=== PATIENT | male | born 1965 | race American Indian/Alaskan Native ===

== ENCOUNTER 2020-07-06 11:19 | Emergency (ER) | payer SELFPAY ==
--- NOTE | 2020-07-06 11:52 | Emergency Department Report ---
ED Chest Pain HPI - General Chief Complaint: Chest Pain Stated Complaint: CHEST PAIN Time Seen by Provider: 07/06/20 11:49 Source: patient, EMS Mode of arrival: Stretcher Limitations: No Limitations - History of Present Illness Initial Comments: 55-year-old male with a past medical history of atrial fibrillation (on aspirin 81 and diltiazem), current smoker (1/2 pack/day), and elevated cholesterol (noncompliant with Lipitor) presents to the hospital with complaints of intermittent chest pain. Symptoms occurred while standing at work. He describes it as a tightness of his heart or feeling like his heart is temporarily stopping. Symptoms are episodic lasting for seconds at a time. No aggravating alleviating factors reported. Patient has had similar symptoms in the past but were more frequent today. He denies associated nausea, vomiting, diaphoresis, or shortness of breath. He is compliant with his aspirin and diltiazem. He is unclear if he has paroxysmal atrial fibrillation or continuous atrial fibrillation. He reports a normal stress test performed end of last year or early 2020 by his marketing programs manager and [place]. Denies history of previous cath, CAD, or stent. Patient moved here and traveled via bus to [place] approximately 2 weeks ago. He denies history of PE/DVT, calf tenderness, or leg edema. He does not have a local marketing programs manager. Patient states he did have a large cup of caffeine earlier this morning and admits that his marketing programs manager in the past had advised him to not drink caffeine. He denies history of CAD in his family members prior to the age of 65 Severity scale (0 -10): 10 - Related Data Home Medications Medication Instructions Recorded Confirmed Last Taken Aspirin [Adult Aspirin] 81 mg PO QDAY 07/06/20 07/06/20 Unknown dilTIAZem CD [Cardizem Cd] 240 mg PO QDAY 07/06/20 07/06/20 Unknown Allergies Allergy/AdvReac Type Severity Reaction Status Date / Time No Known Allergies Allergy Verified 07/06/20 11:27 Heart Score - HEART Score History: Slightly suspicious EKG: Normal Age: 45-65 Risk factors: 1-2 risk factors Troponin: < normal limit HEART Score: 2 - EKG Read Time Time EKG Completed: 11:26 EKG Read Time: 11:30 ED Review of Systems ROS: Stated complaint: CHEST PAIN Other details as noted in HPI Comment: All other systems reviewed and negative ED Past Medical Hx - Past Medical History Previous Medical History?: Yes Additional medical history: afib - Surgical History Past Surgical History?: No - Social History Smoking Status: Current Every Day Smoker Substance Use Type: None - Medications Home Medications: Home Medications Medication Instructions Recorded Confirmed Last Taken Type Aspirin [Adult Aspirin] 81 mg PO QDAY 07/06/20 07/06/20 Unknown History dilTIAZem CD [Cardizem Cd] 240 mg PO QDAY 07/06/20 07/06/20 Unknown History ED Physical Exam - General Limitations: No Limitations - Other Other exam information: General: No acute distress Head: Atraumatic Eyes: normal appearance ENT: Moist mucous membranes Neck: Normal appearance, no midline tenderness Chest: Clear to auscultation bilaterally CV: Regular rate and rhythm. Intermittent PVCs and pac's noted on the monitor 1 patient has the sensation of his heart stopping Abdomen: Soft, normal bowel sounds, nontender, nondistended, no rebound or guarding Back: Normal inspection Extremity: Normal inspection, full range of motion, no calf tenderness or leg edema Neuro: Alert O x 3, no facial asymmetry, speech clear, no gross motor sensory de ficit Psych: Appropriate behavior Skin: No rash ED Course Vital Signs 07/06/20 07/06/20 07/06/20 11:22 11:30 12:00 Temperature 98 F Pulse Rate 68 65 67 Respiratory 22 9 L 17 Rate Blood Pressure 135/86 Blood Pressure 131/81 [Left] O2 Sat by Pulse 98 98 97 Oximetry 07/06/20 07/06/20 07/06/20 12:30 13:00 13:30 Temperature Pulse Rate 66 69 67 Respiratory 14 21 20 Rate Blood Pressure 136/88 148/90 129/76 Blood Pressure [Left] O2 Sat by Pulse 99 93 98 Oximetry 07/06/20 07/06/20 07/06/20 14:00 14:30 15:00 Temperature Pulse Rate 67 61 Respiratory 16 17 Rate Blood Pressure 130/73 110/63 124/71 Blood Pressure [Left] O2 Sat by Pulse 99 97 91 Oximetry EDMUND score - Edmund Score Age > 65: (0) No Aspirin use within the Past 7 Days: (1) Yes 3 or more CAD Risk Factors: (0) No 2 or more Angina events in past 24 hrs: (0) No Known CAD with more than 50% Stenosis: (0) No Elevated Cardiac Markers: (0) No ST Deviation Greater than 0.5mm: (0) No EDMUND Score: 1 ED Medical Decision Making - Lab Data Result diagrams: 07/06/20 11:55 07/06/20 12:56 Lab Results 07/06/20 07/06/20 07/06/20 Range/Units 11:55 11:55 11:55 WBC 6.9 (4.5-11.0) K/mm3 RBC 4.79 (3.65-5.03) M/mm3 Hgb 14.0 (11.8-15.2) gm/dl Hct 42.4 (35.5-45.6) % MCV 89 (84-94) fl MCH 29 (28-32) pg MCHC 33 (32-34) % RDW 14.1 (13.2-15.2) % Plt Count 221 (140-440) K/mm3 Lymph % (Auto) 21.8 (13.4-35.0) % Wy[place] % (Auto) 9.9 H (0.0-7.3) % Eos % (Auto) 2.0 (0.0-4.3) % Baso % (Auto) 0.7 (0.0-1.8) % Lymph # (Auto) 1.5 (1.2-5.4) K/mm3 Wythe # (Auto) 0.7 (0.0-0.8) K/mm3 Eos # (Auto) 0.1 (0.0-0.4) K/mm3 Baso # (Auto) 0.1 (0.0-0.1) K/mm3 Seg Neutrophils % 65.6 (40.0-70.0) % Seg Neutrophils # 4.6 (1.8-7.7) K/mm3 D-Dimer 193.60 (0-234) ng/mlDDU Sodium 137 (137-145) mmol/L Potassium 5.3 H (3.6-5.0) mmol/L Chloride 102.5 (98-107) mmol/L Carbon Dioxide 30 (22-30) mmol/L Anion Gap 10 mmol/L BUN 8 L (9-20) mg/dL Creatinine 0.9 (0.8-1.3) mg/dL Estimated GFR > 60 ml/min BUN/Creatinine Ratio 9 % Glucose 80 (75-100) mg/dL Calcium 9.6 (8.4-10.2) mg/dL Magnesium 2.10 (1.7-2.3) mg/dL Troponin T (0.00-0.029) ng/mL Urine Opiates Screen Urine Methadone Screen Ur Barbiturates Screen Ur Phencyclidine Scrn Ur Amphetamines Screen U Benzodiazepines Scrn Urine Cocaine Screen U Marijuana (THC) Screen Drugs of Abuse Note 07/06/20 07/06/20 07/06/20 Range/Units 11:55 12:56 13:43 WBC (4.5-11.0) K/mm3 RBC (3.65-5.03) M/mm3 Hgb (11.8-15.2) gm/dl Hct (35.5-45.6) % MCV (84-94) fl MCH (28-32) pg MCHC (32-34) % RDW (13.2-15.2) % Plt Count (140-440) K/mm3 Lymph % (Auto) (13.4-35.0) % Wy[place] % (Auto) (0.0-7.3) % Eos % (Auto) (0.0-4.3) % Baso % (Auto) (0.0-1.8) % Lymph # (Auto) (1.2-5.4) K/mm3 Wythe # (Auto) (0.0-0.8) K/mm3 Eos # (Auto) (0.0-0.4) K/mm3 Baso # (Auto) (0.0-0.1) K/mm3 Seg Neutrophils % (40.0-70.0) % Seg Neutrophils # (1.8-7.7) K/mm3 D-Dimer (0-234) ng/mlDDU Sodium (137-145) mmol/L Potassium 4.4 (3.6-5.0) mmol/L Chloride (98-107) mmol/L Carbon Dioxide (22-30) mmol/L Anion Gap mmol/L BUN (9-20) mg/dL Creatinine (0.8-1.3) mg/dL Estimated GFR ml/min BUN/Creatinine Ratio % Glucose (75-100) mg/dL Calcium (8.4-10.2) mg/dL Magnesium (1.7-2.3) mg/dL Troponin T < 0.010 (0.00-0.029) ng/mL Urine Opiates Screen Negative Urine Methadone Screen Negative Ur Barbiturates Screen Negative Ur Phencyclidine Scrn Negative Ur Amphetamines Screen Negative U Benzodiazepines Scrn Negative Urine Cocaine Screen Negative U Marijuana (THC) Screen Negative Drugs of Abuse Note Disclamer 07/06/20 Range/Units 14:51 WBC (4.5-11.0) K/mm3 RBC (3.65-5.03) M/mm3 Hgb (11.8-15.2) gm/dl Hct (35.5-45.6) % MCV (84-94) fl MCH (28-32) pg MCHC (32-34) % RDW (13.2-15.2) % Plt Count (140-440) K/mm3 Lymph % (Auto) (13.4-35.0) % Wy[place] % (Auto) (0.0-7.3) % Eos % (Auto) (0.0-4.3) % Baso % (Auto) (0.0-1.8) % Lymph # (Auto) (1.2-5.4) K/mm3 Wy[place] # (Auto) (0.0-0.8) K/mm3 Eos # (Auto) (0.0-0.4) K/mm3 Baso # (Auto) (0.0-0.1) K/mm3 Seg Neutrophils % (40.0-70.0) % Seg Neutrophils # (1.8-7.7) K/mm3 D-Dimer (0-234) ng/mlDDU Sodium (137-145) mmol/L Potassium (3.6-5.0) mmol/L Chloride (98-107) mmol/L Carbon Dioxide (22-30) mmol/L Anion Gap mmol/L BUN (9-20) mg/dL Creatinine (0.8-1.3) mg/dL Estimated GFR ml/min BUN/Creatinine Ratio % Glucose (75-100) mg/dL Calcium (8.4-10.2) mg/dL Magnesium (1.7-2.3) mg/dL Troponin T < 0.010 (0.00-0.029) ng/mL Urine Opiates Screen Urine Methadone Screen Ur Barbiturates Screen Ur Phencyclidine Scrn Ur Amphetamines Screen U Benzodiazepines Scrn Urine Cocaine Screen U Marijuana (THC) Screen Drugs of Abuse Note Initial potassium level suspected to be lab error as his repeat is in normal range - EKG Data -: EKG Interpreted by Me EKG shows normal: sinus rhythm, ST-T waves (No STEMI) Rate: normal - Radiology Data Radiology results: report reviewed CT ABDOMEN AND PELVIS WITHOUT CONTRAST HISTORY: Diarrhea and weakness COMPARISON: None TECHNIQUE: Routine abdominal and pelvic CT exam performed without contrast. Lack of intravenous contrast limits evaluation of the vascular and solid organs.. All CT scans at this location are performed using CT dose reduction for ALARA by means of automated exposure control. FINDINGS: CT ABDOMEN: Lung Bases: No significant abnormality. Liver: Mildly nodular surface contour of the liver parenchyma may indicate mild cirrhosis. Biliary: There is a gallstone in the gallbladder without evidence of acute cholecystitis. Spleen: No significant abnormality. Unenlarged. Pancreas: No significant abnormality. Adrenals: No significant abnormality. Kidneys: No acute findings. 2 cm simple cyst medial right kidney. Lymphatics: No lymphadenopathy. Vasculature: Abdominal aortic and branch vessel atherosclerotic calcifications without aortic aneurysm. Bowel/Peritoneum: No significant abnormality. No free air. No free fluid. Jeanette l appendix. CT PELVIC: : No significant abnormality. Lymphatics: No lymphadenopathy. Osseous Structures: No aggressive appearing osseous lesions. Additional Findings: None IMPRESSION: 1. No acute findings. 2. Cholelithiasis without evidence of acute cholecystitis. 3. Possible mild cirrhosis. - Medical Decision Making 55-year male presents to the hospital complaining feel like his heart is stopping and restarting prior to arrival. Patient has several episodes to manage her interview it was noted to have PACs and PVCs on the monitor. Patient's initial EKG was normal sinus without arrhythmia. Patient is currently on diltiazem and aspirin has been compliant. Patient had unremarkable ED evaluation including troponin negative x2 and negative D-dimer, chest x-ray, and normal vital signs during ED 4-hour observation.. Patient states that these sensations in his chest have ceased and are no longer occurring. Suspect that gail jules's ectopic beats were secondary to his admitted excessive caffeine use this a.m. Patient was counseled to avoid caffeine and will be provided local cardiology follow-up. Critical Care Time: No Critical care attestation.: If time is entered above; I have spent that time in minutes in the direct care of this critically ill patient, excluding procedure time. ED Disposition Clinical Impression: Intermittent palpitations, PVC (premature ventricular contraction), PAC (premature atrial contraction), History of atrial fibrillation, Smoker Disposition: TO HOME OR SELFCARE Is pt being admited?: No Does the pt Need Aspirin: No Condition: Stable Instructions: Premature Atrial Contraction, Premature Ventricular Contraction, Palpitations, [id number], Atrial Fibrillation, [id number], Steps to Quit Smoking Additional Instructions: Continue your medication as prescribed. Avoid caffeine use. follow-up with your doctor or doctor/clinic provided. Return if symptoms worsen as indicated by your discharge instructions. Referrals: MIKKI THAKUR MD [Staff Physician] - 3-5 Days ([employer]) [facility] [Provider Group] - 3-5 Days (Primary care clinic) LAINEY PHILLIPS MD [Staff Physician] - 3-5 Days (Primary care physician) Time of Disposition: 15:48
[2020-07-06 12:07] LABS: Basophils # (Auto) 0.1 K/mm3 (0.0-0.1); Basophils % (Auto) 0.7 % (0.0-1.8); Eosinophils # (Auto) 0.1 K/mm3 (0.0-0.4); Hematocrit 42.4 % (35.5-45.6); Lymphocytes # (Auto) 1.5 K/mm3 (1.2-5.4); Lymphocytes % (Auto) 21.8 % (13.4-35.0); Mean Corpuscular HGB Conc 33 % (32-34); Mean Corpuscular Volume 89 fl (84-94); Monocytes # (Auto) 0.7 K/mm3 (0.0-0.8); Monocytes % (Auto) 9.9 % (0.0-7.3); Platelet Count 221 K/mm3 (140-440); Red Blood Count 4.79 M/mm3 (3.65-5.03); Red Cell Distribution Width 14.1 % (13.2-15.2)
[2020-07-06 12:24] LABS: BUN/Creatinine Ratio 9; Blood Urea Nitrogen 8 mg/dL (9-20); Calcium 9.6 mg/dL (8.4-10.2); Hemolysis Index 7
--- NOTE | 2020-07-06 12:51 | XRay Report ---
CHEST 1 VIEW 07/06/2020 11:53 AM INDICATION / CLINICAL INFORMATION: Chest pain. COMPARISON: None available. FINDINGS: SUPPORT DEVICES: None. HEART / MEDIASTINUM: No significant abnormality. LUNGS / PLEURA: The left hemidiaphragm is elevated with clear lungs. No significant pleural effusion. No pneumothorax. ADDITIONAL FINDINGS: No significant additional findings. IMPRESSION: 1. No acute abnormality of the chest. Signer Name: Devin Costa MD Signed: 07/06/2020 12:46 PM Workstation Name: [id number]
[2020-07-06 15:18] LABS: Amphetamine Screen,Urine Negative; Benzodiazepines Screen,Urine Negative; Cannabinoid Screen,Urine Negative; Cocaine Screen,Urine Negative; Methadone Screen,Urine Negative; Opiate Screen,Urine Negative
[2020-07-06 16:10] VITALS: BP 129/69
--- NOTE | 2020-07-08 11:18 | Electrocardiograph Report ---
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
== END 2020-07-06 16:40 | disposition home or self-care (01) ==
LOC: ED 11:19
DX: I49.3 Ventricular premature depolarization (principal); I49.1 Atrial premature depolarization; R00.2 Palpitations; E78.00 Pure hypercholesterolemia, unspecified; F17.200 Nicotine dependence, unspecified, uncomplicated; F41.9 Anxiety disorder, unspecified; Z79.899 Other long term (current) drug therapy
CPT/HCPCS: 36415; 71045; 80048; 80307; 83735; 84132; 84484; 85025; 85379; 93005